=== PATIENT | female | born 1980 | race African-American/Black ===

== ENCOUNTER 2020-03-17 02:04 | Observation (INO) | payer OTHER ==
[2020-03-17 02:15] VITALS: BMI 29.5
[2020-03-17] MEDS ORDERED: METOPROLOL TARTRATE 50 MG TABLET (FP) PO ONE (02:19)
[2020-03-17] MEDS ORDERED: ACETAMINOPHEN 1000 MG/100 ML VIAL (NON FORMULARY) IVPB ONE (02:42)
[2020-03-17] MEDS ORDERED: ACETAMINOPHEN INJECTION 100 ML IVPB ONE (02:47)
[2020-03-17] MEDS ORDERED: METOPROLOL TARTRATE 50 MG TABLET (FP) ONE (02:47)
[2020-03-17 03:52] LABS: BASO % 0.5 % (0-2.0); EOS % 2.5 % (0-4.5); HEMATOCRIT 41.8 % (32.4-45.2); HEMOGLOBIN 13.9 GM/dL (10.7-15.3); LYMPH % 31.1 % (8-40); MCH 30.5 pg (25.7-33.7); MCHC 33.3 g/dl (32.0-36.0); MEAN CELL VOLUME 91.6 fl (80-96); MEAN PLT VOLUME 9.1 fl (7.5-11.1); MONO % 8.3 % (3.8-10.2); NEUT % 57.6 % (42.8-82.8); PLATELET COUNT 295 K/MM3 (134-434); RBC 4.56 M/mm3 (3.60-5.2); RDW 13.7 % (11.6-15.6); WHITE BLOOD COUNT 7.2 K/mm3 (4.0-10.0)
[2020-03-17 04:02] LABS: INR 0.97 (0.83-1.09); PROTHROMBIN TIME (PATIENT) 11.7 SEC (9.7-13.0)
[2020-03-17 04:04] LABS: ACTIVATED PTT 28.2 SECONDS (25.2-36.5); POTASSIUM 4.2 mmol/L (3.5-5.1)
[2020-03-17 04:07] LABS: ALBUMIN 3.8 g/dl (3.4-5.0); BLOOD UREA NITROGEN 15.2 mg/dL (7-18); CALCIUM 8.6 mg/dL (8.5-10.1)
[2020-03-17 04:11] LABS: CREATININE 0.9 mg/dL (0.55-1.3)
[2020-03-17 04:12] LABS: BILIRUBIN,TOTAL 0.8 mg/dL (0.2-1); TOT PROT 6.7 g/dl (6.4-8.2)
[2020-03-17] MEDS ORDERED: ASPIRIN 81 MG CHEWABLE TABLETS PO ONE (04:26)
[2020-03-17] MEDS ORDERED: ASPIRIN 81 MG CHEWABLE TABLETS ONE (04:39)
[2020-03-17] MEDS ORDERED: ENOXAPARIN NA (PORCINE) 80 MG/0.8 ML DISP.SYRIN SQ ONE ×2 (05:32→06:20)
[2020-03-17] MEDS ORDERED: LISINOPRIL 5 MG TABLET ONE (10:08)
[2020-03-17] MEDS ORDERED: ENOXAPARIN NA (PORCINE) 40 MG/0.4 ML DISP.SYRIN SQ ONE (10:08)
[2020-03-17] MEDS ORDERED: amLODIPine BESYLATE 5 MG TABLET (FP) ONE (10:08)
[2020-03-17] MEDS: ENOXAPARIN NA (PORCINE) 40 MG/0.4 ML DISP.SYRIN SQ SCH (10:17)
[2020-03-17] MEDS: amLODIPine BESYLATE 10 MG TABLET (FP) PO SCH (10:17)
[2020-03-17] MEDS: LISINOPRIL 10 MG TABLET PO SCH (10:17)
[2020-03-18 09:29] LABS: BASO % 0.7 % (0-2.0); EOS % 1.9 % (0-4.5); HEMATOCRIT 44.1 % (32.4-45.2); HEMOGLOBIN 15.1 GM/dL (10.7-15.3); LYMPH % 41.8 % (8-40); MCH 31.3 pg (25.7-33.7); MCHC 34.2 g/dl (32.0-36.0); MEAN CELL VOLUME 91.6 fl (80-96); MEAN PLT VOLUME 8.7 fl (7.5-11.1); NEUT % 48.6 % (42.8-82.8); PLATELET COUNT 345 K/MM3 (134-434); POTASSIUM 4.3 mmol/L (3.5-5.1); RBC 4.82 M/mm3 (3.60-5.2); RDW 13.9 % (11.6-15.6); WHITE BLOOD COUNT 6.7 K/mm3 (4.0-10.0)
[2020-03-18 09:32] LABS: ALBUMIN 3.8 g/dl (3.4-5.0); BLOOD UREA NITROGEN 17.7 mg/dL (7-18); MAGNESIUM 2.1 mg/dL (1.8-2.4)
[2020-03-18 09:34] LABS: CHOLESTEROL 148 mg/dL (50-200)
[2020-03-18 09:34] LABS: CREATININE 1.1 mg/dL (0.55-1.3)
[2020-03-18 09:35] LABS: PHOSPHOROUS 3.8 mg/dL (2.5-4.9)
[2020-03-18 09:35] LABS: TRIGLYCERIDES 162 mg/dL (0-150)
[2020-03-18 09:36] LABS: LDL CHOLESTEROL (ONLY SJRH) 75 mg/dL (5-100)
[2020-03-18 09:36] LABS: BILIRUBIN,TOTAL 1.1 mg/dL (0.2-1); TOT PROT 6.9 g/dl (6.4-8.2)
[2020-03-18 09:38] LABS: HDL CHOLESTEROL 49 mg/dL (40-60)
[2020-03-18] MEDS ORDERED: SERTRALINE HCL 25 MG TABLET (FP) PO SCH (10:00)
[2020-03-18] MEDS ORDERED: ISOSORBIDE MONONITRATE 30 MG TAB.SR.24H (FP) PO SCH (10:00)
[2020-03-18] MEDS ORDERED: LISINOPRIL 5 MG TABLET ONE (10:06)
[2020-03-18] MEDS ORDERED: ENOXAPARIN NA (PORCINE) 40 MG/0.4 ML DISP.SYRIN SQ ONE (10:06)
[2020-03-18] MEDS ORDERED: amLODIPine BESYLATE 5 MG TABLET (FP) ONE (10:06)
[2020-03-18] MEDS ORDERED: SERTRALINE HCL 50 MG TABLET (FP) ONE (10:07)
[2020-03-18] MEDS ORDERED: ISOSORBIDE MONONITRATE 60 MG TAB.SR.24H (FP) PO ONE (10:07)
[2020-03-18] MEDS: LISINOPRIL 10 MG TABLET PO SCH (10:18)
[2020-03-18] MEDS: ENOXAPARIN NA (PORCINE) 40 MG/0.4 ML DISP.SYRIN SQ SCH (10:18)
[2020-03-18] MEDS: amLODIPine BESYLATE 10 MG TABLET (FP) PO SCH (10:18)
[2020-03-18 13:35] VITALS: BP 92/51; PULSE 76; TEMP 98.2
[2020-03-18] MEDS ORDERED: ROSUVASTATIN CA 20 MG TABLET (FP) PO SCH (22:00)
== END 2020-03-18 12:00 | disposition home or self-care (01) ==
LOC: JER 02:04 → JERBED 04:22 → INTOOBSV 04:22 → UNDOADMOB 04:22 → JERBED 10:36
PROVIDERS: ADMIT Internal Medicine; ATTEND Student in an Organized Health Care Education/Training Program
PROC: 3E033NZ Introduction of Analgesics, Hypnotics, Sedatives into Peripheral Vein, Percutaneous Approach (ICD-10-PCS; principal; 2020-03-17)
PROC: 3E023GC Introduction of Other Therapeutic Substance into Muscle, Percutaneous Approach (ICD-10-PCS; 2020-03-17)
DX: I10 Essential (primary) hypertension (principal); E78.5 Hyperlipidemia, unspecified; R79.89 Other specified abnormal findings of blood chemistry; F41.8 Other specified anxiety disorders; R73.03 Prediabetes; R21 Rash and other nonspecific skin eruption; G47.33 Obstructive sleep apnea (adult) (pediatric); Z91.14 Patient's other noncompliance with medication regimen; Z99.81 Dependence on supplemental oxygen; Z86.73 Personal history of transient ischemic attack (TIA), and cerebral infarction without residual deficits; Z29.9 Encounter for prophylactic measures, unspecified; D25.9 Leiomyoma of uterus, unspecified; G89.29 Other chronic pain; R07.9 Chest pain, unspecified; I51.9 Heart disease, unspecified
CPT/HCPCS: 36415; 71045-TC-FY; 80053; 80061; 82550; 82553; 83036; 83721; 83735; 84100; 84443; 84484; 84703; 85025; 85610; 85730; 93005; 93010; 96372; 96374; 99285-25; C9803; G0378; J0131; U0003